=== PATIENT | male | born 1990 | race Caucasian/White ===

== ENCOUNTER 2016-09-27 15:35 | Emergency (ER) | payer OTHER ==
[2016-09-27 15:40] VITALS: BP 130/75
--- NOTE | 2016-09-27 16:37 | RAD ---
Left hand, 09/27/2016: History: Fall, pain There is a fracture of the fifth metacarpal just distal to its midpoint. There is mild volar and radial angulation of the distal fracture fragment without significant displacement. No other fracture or dislocation is identified. Left wrist, 3 views, 09/27/2016: No additional fracture or dislocation is identified. IMPRESSION: Mildly angulated fracture of the left fifth metacarpal.
--- NOTE | 2016-09-27 17:06 | ED.ADGEN ---
Past History Past Medical History: No Pertinent History Past Surgical History: Tonsillectomy Alcohol Use: None Drug Use: None Adult General Chief Complaint Chief Complaint hand pain HPI HPI Patient is a 26 year old male who presents with left hand pain. Patient was working on a table yesterday when a large wooden block fell onto his hand. He sustained a crush injury and it was swollen, the pain worsened today. No other injuries reported Review of Systems Review of Systems Constitutional: Denies fever or chills [] Eyes: Denies change in visual acuity, redness, or eye pain [] HENT: Denies nasal congestion or sore throat [] Respiratory: Denies cough or shortness of breath [] Cardiovascular: Denies chest pain GI: Denies abdominal pain, nausea, vomiting, bloody stools or diarrhea [] : Denies dysuria or hematuria [] Musculoskeletal: Denies back pain Integument: Denies rash or skin lesions [] Neurologic: Denies headache, focal weakness or sensory changes [] Endocrine: Denies polyuria or polydipsia [] Allergies Allergies Allergies Coded Allergies Type Severity Reaction Last Updated Verified oxycodone Allergy Unknown 09/27/16 Yes Physical Exam Physical Exam Constitutional: Well developed, well nourished, no acute distress, non-toxic appearance. [] HENT: Normocephalic, atraumatic, bilateral external ears normal, oropharynx moist, no oral exudates, nose normal. [] Eyes: PERRLA, EOMI, conjunctiva normal, no discharge. [] Neck: Normal range of motion, no tenderness, supple, no stridor. [] Cardiovascular:Heart rate regular rhythm, no murmur [] Lungs & Thorax: Bilateral breath sounds clear to auscultation [] Abdomen: Bowel sounds normal, soft, no tenderness, no masses, no pulsatile masses. [] Skin: Warm, dry, no erythema, no rash. [] Back: No tenderness, no CVA tenderness. [] Extremities: No tenderness, no cyanosis, no clubbing, ROM intact, no edema. [] Neurologic: Alert and oriented X 3, normal motor function, normal sensory function, no focal deficits noted. [] Psychologic: Affect normal, judgement normal, mood normal. [] Current Patient Data Vital Signs Vital Signs Date Time Temp Pulse Resp B/P Pulse Ox O2 Delivery O2 Flow Rate FiO2 09/27/16 15:40 98.1 80 18 99 Room Air EKG EKG [] Radiology/Procedures Radiology/Procedures hand left hand: Left hand, 09/27/2016: History: Fall, pain There is a fracture of the fifth metacarpal just distal to its midpoint. There is mild volar and radial angulation of the distal fracture fragment without significant displacement. No other fracture or dislocation is identified. Left wrist, 3 views, 09/27/2016: No additional fracture or dislocation is identified. IMPRESSION: Mildly angulated fracture of the left fifth metacarpal. [] Course & Med Decision Making Course & Med Decision Making Pertinent Labs and Imaging studies reviewed. (See chart for details) X-ray shows mildly displaced fifth metacarpal fracture. Patient was placed in a ulnar gutter, placed by nursing, reviewed by me with good distal neurovascular status. Final Impression Final Impression []metacarpal fracture - acute left 5th metacarpal Problems: Dragon Disclaimer Dragon Disclaimer This electronic medical record was generated, in whole or in part, using a voice recognition dictation system. CLAUDIA BLACKBURN MD Sep 27, 2016 17:06
[2016-09-27] MEDS ORDERED: TRAM50TA PO (17:09)
== END 2016-09-27 17:20 | disposition home or self-care (01) ==
LOC: ER 15:35
DX: S62.307A Unspecified fracture of fifth metacarpal bone, left hand, initial encounter for closed fracture (principal); Z88.6 Allergy status to analgesic agent; W20.8XXA Other cause of strike by thrown, projected or falling object, initial encounter; Y93.89 Activity, other specified; Y99.8 Other external cause status; Y92.89 Other specified places as the place of occurrence of the external cause
CPT/HCPCS: 29125; 73110; 73130; 99284-25

== ENCOUNTER 2017-04-14 12:55 | Emergency (ER) | payer SELFPAY ==
[~2017-04-14] VITALS: Ht 185.4 cm; Wt 74.8 kg
[~2017-04-14 12:55] MED LIST: TRAM50TA PO
[2017-04-14] MEDS ORDERED: SERTRALINE 25 MG TABLET. PO ONE (13:45)
[2017-04-14] MEDS ORDERED: ONDANSETRON ODT 4 MG TAB.RAPDIS PO ONE (13:45)
[2017-04-14 13:48] LABS: HEMOGLOBIN ISTAT 15.6 gm/dL; POTASSIUM ISTAT 3.7 mmol/L (3.5-5.0)
--- NOTE | 2017-04-14 14:09 | PHYS DOC ---
General Chief Complaint: NAUSEA/VOMITING/DIARRHEA Stated Complaint: NAUSEA/VOMITING Time Seen by MD: 13:02 Source: patient Exam Limitations: no limitations Problems: History of Present Illness Initial Comments Patient is a 26-year-old male who comes to the ED with several complaints. Patient states that he's had 3 days of lightheadedness, "feeling like I'm in a movie" described as when rotating his head his vision looks like a series of still images place together. He's had some tingling in his extremities, he's had intermittent episodes of nausea with 3 episodes of nonbloody emesis, and stools have been loose. He denies any fever chills sweats or body aches, no abdominal discomfort headache nasal congestion or sore throat. Patient states that he normally takes Zoloft "low-dose" has taken it for anxiety but he's been off for about a week. He states that he took one dose 2 days ago but his symptoms did not get better states he stopped the medication because "I discussed didn't go slate picker my refill." On arrival heart rate 103 bpm however his rate quickly normalizes once he sits down and relaxes. He denies any suicidal or homicidal ideation and says he doesn't feel like he is "sick" but that he simply feels "different" and very strange. He follows with Dr. Hyman. [id number] Pepto-Bismol did not help. Timing/Duration: intermittent Severity: mild Modifying Factors: worse with medication Associated Symptoms: malaise, nausea/vomiting, other Allergies: Coded Allergies: latex (Verified Allergy, Unknown, 04/14/17) oxycodone (Verified Allergy, Unknown, 09/27/16) Past Medical History Medical History: other (anxiety) Surgical History: tonsillectomy Social History Smoker: non-smoker Alcohol: none Drugs: none Review of Systems Constitutional: see HPI EENTM: denies eye pain, blurred vision, denies ear pain, denies nose congestion , denies throat pain, denies throat swelling Respiratory: see HPI, denies cough, denies shortness of breath, denies wheezing Cardiovascular: denies chest pain, denies palpitations, denies syncope Gastrointestinal: see HPI, denies abdominal pain Genitourinary: denies dysuria, denies frequency, denies hematuria Musculoskeletal: denies back pain, denies joint swelling, denies neck pain Psychiatric/Neurological: see HPI Physical Exam General Appearance: WD/WN, no apparent distress Eyes: bilateral eye normal inspection, bilateral eye PERRL, bilateral eye EOMI Ear, Nose, Throat: hearing grossly normal, normal ENT inspection, normal pharynx Neck: non-tender, supple Respiratory: normal breath sounds, no respiratory distress Cardiovascular: normal peripheral pulses, regular rate, rhythm Gastrointestinal: normal bowel sounds, non tender, soft Back: normal inspection, no CVA tenderness, no vertebral tenderness Extremities: normal range of motion, non-tender, normal inspection Neurologic/Psychiatric: assembler trim II-XII nml as tested, no motor/sensory deficits, alert, normal mood/affect, oriented x 3 Skin: normal color, warm/dry Orders, Labs, Meds I-STAT BMP: Electrolytes normal BUN 10 creatinine 0.8 always in normal limits. Patient not ill-appearing, symptoms appear to be related to possible early serotonin syndrome although acute gastroenteritis not definitively ruled out. No acute emergent condition noted, Zofran with resolution of nausea. Patient has been looking online at serotonin syndrome and states that the condition characterizes his symptoms definitively in his mind. I discussed signs and symptoms to monitor as well as indications for urgent return to the department. His questions were answered, I discussed concussion and [id number] medications as well as oral hydration. He expressed agreement and understanding with the treatment plan and requested no further evaluation and discharge. Departure Time of Disposition: 14:08 Disposition: 01 HOME, SELF-CARE Diagnosis: serotonin syndrome, nausea vomiting Condition: STABLE Patient Instructions: Nausea and Vomiting, [id number], Serotonin Syndrome Additional Instructions: Resume Zoloft as prescribed. Aggressive hydration with Gatorade and water. Prescription: Zofran ODT Follow-up with Dr. Hyman later this week to discuss your medications. Return to the ED with new or changing symptoms. ZION REYEZ DO Apr 14, 2017 14:09
[2017-04-14] MEDS ORDERED: ONDA4TAB10 PO (14:10)
[2017-04-14 14:21] VITALS: BP 146/78
== END 2017-04-14 14:22 | disposition home or self-care (01) ==
LOC: ER 12:55
DX: E34.0 Carcinoid syndrome (principal); Z88.5 Allergy status to narcotic agent; Z91.040 Latex allergy status
CPT/HCPCS: 36415; 80047; 85014; 85018; 99283; Q0162

== ENCOUNTER 2017-07-14 12:52 | Emergency (ER) | payer OTHER ==
[~2017-07-14] VITALS: Ht 177.8 cm; Wt 90.7 kg
[~2017-07-14 12:52] MED LIST changes: +ONDA4TAB10 PO
[2017-07-14] MEDS ORDERED: 0.9 % SODIUM CHLORIDE 10 ML DISP.SYRIN. IV PRN (13:45)
[2017-07-14] MEDS ORDERED: IV NORMAL SALINE 1,000ML 1,000 ML IV SCH (13:45)
[2017-07-14] MEDS ORDERED: ONDANSETRON PF 4 MG/2 ML VIAL. IV ONE (13:45)
[2017-07-14 13:48] LABS: BASO % 0 % (0-3); EOS # 0.1 x10^3/uL (0.0-0.7); EOS % 1 % (0-3); HEMATOCRIT 50.5 % (39.0-53.0); HEMOGLOBIN 18.2 g/dL (13.0-17.5); LYMPH % 20 % (24-48); MEAN CORPUSCULAR HEMOGLOBIN 32 pg (25-35); MEAN CORPUSCULAR HGB CONC 36 g/dL (31-37); MEAN CORPUSCULAR VOLUME 90 fL (79-100); MONO # 0.7 x10^3/uL (0.0-1.1); MONO % 8 % (0-9); NEUT # 6.9 x10^3uL (1.8-7.7); NEUT % 71 % (31-73); PLATELET COUNT 299 x10^3/uL (140-400); RED BLOOD COUNT 5.61 x10^6/uL (4.30-5.70); RED CELL DISTRIBUTION WIDTH 13.3 % (11.5-14.5); WHITE BLOOD COUNT 9.7 x10^3/uL (4.0-11.0)
[2017-07-14 14:00] LABS: ALBUMIN 5.1 g/dL (3.4-5.0); ALBUMIN/GLOBULIN RATIO 1.5 (1.0-1.7); CALCIUM 9.9 mg/dL (8.5-10.1); CREATININE 1.2 mg/dL (0.7-1.3); GFR 73.8; POTASSIUM 3.7 mmol/L (3.5-5.1); TOTAL BILIRUBIN 1.9 mg/dL (0.2-1.0); TOTAL PROTEIN 8.5 g/dL (6.4-8.2)
[2017-07-14 14:11] LABS: INFLUENZA A PATIENT NEGATIVE (NEGATIVE); INFLUENZA B PATIENT NEGATIVE (NEGATIVE)
[2017-07-14] MEDS ORDERED: ONDA4TAB10 SL (16:32)
--- NOTE | 2017-07-14 16:33 | PHYS DOC ---
Past History Past Medical History: Anxiety Past Surgical History: Tonsillectomy Alcohol Use: None Drug Use: None Adult General Chief Complaint Chief Complaint: FLU SYMPTOM HPI HPI 27-year-old male patient complaining of a soda of nausea and vomiting and diarrhea for the last 4 days. Patient states he has had 2 episodes of vomiting and diarrhea today with cramping abdominal pain and generalized weakness and subjective fever and chills with sore throat and not feeling good. Patient denies cough and congestion and urinary symptom and sick contact. Review of Systems Review of Systems Constitutional: Ports fever and chills Eyes: Denies change in visual acuity, redness, or eye pain [] HENT: Denies nasal congestion , reports sore throat Respiratory: Denies cough or shortness of breath [] Cardiovascular: No additional information not addressed in HPI [] GI: Reports abdominal pain, nausea, vomiting, diarrhea [] : Denies dysuria or hematuria [] Musculoskeletal: Denies back pain or joint pain [] Integument: Denies rash or skin lesions [] Neurologic: Denies headache, focal weakness or sensory changes [] Endocrine: Denies polyuria or polydipsia [] All other systems were reviewed and found to be within normal limits, except as documented in this note. Current Medications Current Medications Current Medications Medications (Trade) Dose Ordered Sig/Mihir Start Time Stop Time Status Last Admin Dose Admin Ondansetron HCl (Zofran) 4 mg 1X ONCE 07/14/17 13:45 07/14/17 13:46 DC 07/14/17 14:04 4 MG Sodium Chloride (Normal Saline Flush) 10 ml QSHIFT PRN 07/14/17 13:45 Allergies Allergies Allergies Coded Allergies Type Severity Reaction Last Updated Verified latex Allergy Unknown 04/14/17 Yes oxycodone Allergy Unknown 09/27/16 Yes Physical Exam Physical Exam Constitutional: Well developed, well nourished, mild distress, non-toxic appearance. [] HENT: Normocephalic, atraumatic, bilateral external ears normal, oropharynx dryst, no oral exudates, nose normal. [] Eyes: PERRLA, EOMI, conjunctiva normal, no discharge. [] Neck: Normal range of motion, no tenderness, supple, no stridor. [] Cardiovascular:Heart rate regular rhythm, no murmur [] Lungs & Thorax: Bilateral breath sounds clear to auscultation [] Abdomen: Bowel sounds normal, soft, no tenderness, no masses, no pulsatile masses. [] Skin: Warm, dry, no erythema, no rash. [] Back: No tenderness, no CVA tenderness. [] Extremities: No tenderness, no cyanosis, no clubbing, ROM intact, no edema. [] Neurologic: Alert and oriented X 3, normal motor function, normal sensory function, no focal deficits noted. [] Psychologic: Affect normal, judgement normal, mood normal. [] Current Patient Data Lab Results Laboratory Tests Test 07/14/17 13:22 07/14/17 13:45 White Blood Count 9.7 x10^3/uL (4.0-11.0) Red Blood Count 5.61 x10^6/uL (4.30-5.70) Hemoglobin 18.2 g/dL (13.0-17.5) H Hematocrit 50.5 % (39.0-53.0) Mean Corpuscular Volume 90 fL (79-100) Mean Corpuscular Hemoglobin 32 pg (25-35) Mean Corpuscular Hemoglobin Concent 36 g/dL (31-37) Red Cell Distribution Width 13.3 % (11.5-14.5) Platelet Count 299 x10^3/uL (140-400) Neutrophils (%) (Auto) 71 % (31-73) Lymphocytes (%) (Auto) 20 % (24-48) L Monocytes (%) (Auto) 8 % (0-9) Eosinophils (%) (Auto) 1 % (0-3) Basophils (%) (Auto) 0 % (0-3) Neutrophils # (Auto) 6.9 x10^3uL (1.8-7.7) Lymphocytes # (Auto) 2.0 x10^3/uL (1.0-4.8) Monocytes # (Auto) 0.7 x10^3/uL (0.0-1.1) Eosinophils # (Auto) 0.1 x10^3/uL (0.0-0.7) Basophils # (Auto) 0.0 x10^3/uL (0.0-0.2) Sodium Level 141 mmol/L (136-145) Potassium Level 3.7 mmol/L (3.5-5.1) Chloride Level 101 mmol/L (98-107) Carbon Dioxide Level 28 mmol/L (21-32) Anion Gap 12 (6-14) Blood Urea Nitrogen 21 mg/dL (8-26) Creatinine 1.2 mg/dL (0.7-1.3) Estimated GFR (Cockcroft-Gault) 73.8 BUN/Creatinine Ratio 18 (6-20) Glucose Level 116 mg/dL (70-99) H Lactic Acid Level 2.1 mmol/L (0.4-2.0) H Calcium Level 9.9 mg/dL (8.5-10.1) Total Bilirubin 1.9 mg/dL (0.2-1.0) H Aspartate Amino Transferase (AST) 15 U/L (15-37) Alanine Aminotransferase (ALT) 19 U/L (16-63) Alkaline Phosphatase 65 U/L (46-116) Total Protein 8.5 g/dL (6.4-8.2) H Albumin 5.1 g/dL (3.4-5.0) H Albumin/Globulin Ratio 1.5 (1.0-1.7) Lipase 107 U/L (73-393) Influenza Type A (Rapid) Negative (NEGATIVE) Influenza Type B (Rapid) Negative (NEGATIVE) EKG EKG [] Radiology/Procedures Radiology/Procedures [] Course & Med Decision Making Course & Med Decision Making Pertinent Labs reviewed. (See chart for details) Evaluation of patient in ER showed 27-year-old male patient with complaining of nausea and vomiting and diarrhea and fever and body ache for the last several days that does not getting better. Patient had dry oral mucosa and treated with 2 L of IV fluid and Zofran and felt better. Patient tolerated oral intake. Patient didn't want to have pain medication in ER. Patient had mild elevation of bilirubin 1.6 and lactic acid of 2.1. Patient did not have a source of infection and looked lactic acid was elevated because of dehydration. Plan discharge patient home with diagnose of acute gastroenteritis and dehydration and prescription for Zofran. [] Dragon Disclaimer Dragon Disclaimer This electronic medical record was generated, in whole or in part, using a voice recognition dictation system. Departure Departure: Impression: Primary Impression: Acute gastroenteritis Additional Impressions: Viral illness Dehydration Disposition: HOME, SELF-CARE (At 1630) Condition: IMPROVED Referrals: CYN BURGESS MD (PCP) Patient Instructions: Dehydration, Adult, Viral Gastroenteritis, Viral Syndrome Additional Instructions: Take liquid diet for the next 24 hours Follow-up with your primary care physician in 3-5 days Return to ER if not getting better Scripts Ondansetron (ZOFRAN ODT) 4 Mg Tab.rapdis 1 TAB SL Q8HRS, #15 TAB Prov: LAURO HUDDLESTON MD 07/14/17 Problem Qualifiers LAURO HUDDLESTON MD Jul 14, 2017 16:33
[2017-07-14 16:44] LABS: BILIRUBIN,URINE NEG (NEG); CLARITY,URINE CLOUDY; COLOR,URINE YELLOW; GLUCOSE,URINE NEG (NEG); NITRITE,URINE NEG (NEG); UROBILINOGEN,URINE 0.2 mg/dL (0.2 mg/dL)
[2017-07-14 16:45] LABS: BACTERIA,URINE 0 /HPF (0-FEW); SQUAMOUS EPITHELIAL CELL,UR FEW /LPF
[2017-07-14 16:46] LABS: AMORPHOUS SEDIMENT,UR PRESENT /HPF
[2017-07-14 16:55] VITALS: BP 122/77
[2017-07-14] MEDS ORDERED: IV NORMAL SALINE 1,000ML 1,000 ML IV ONE (18:45)
== END 2017-07-14 16:55 | disposition home or self-care (01) ==
LOC: ER 12:52
DX: K52.9 Noninfective gastroenteritis and colitis, unspecified (principal); B34.9 Viral infection, unspecified; E86.0 Dehydration; Z88.5 Allergy status to narcotic agent; Z91.040 Latex allergy status
CPT/HCPCS: 36415; 80053; 81001; 83605; 83690; 85025; 87040; 87804; 96361; 96374; 99284; J2405; J7030